=== PATIENT | female | born 1935 | race Caucasian/White ===

== ENCOUNTER 2016-08-18 14:43 | Outpatient (CLI) | payer MEDICARE | END 2016-08-18 14:44 | disposition home or self-care (01) | DX: M85.88 Other specified disorders of bone density and structure, other site (principal); M35.3 Polymyalgia rheumatica; Z79.52 Long term (current) use of systemic steroids ==

== ENCOUNTER 2017-02-20 12:05 | Outpatient (CLI) | payer MEDICARE ==
--- NOTE | 2017-02-20 15:19 | XRAY Report ---
LEFT HIP AND PELVIS: 02/20/2017 CLINICAL INDICATION: Pain. FINDINGS: Frontal view of the hips and pelvis and frogleg lateral view of the left hip demonstrate m oderate osteoarthritis. There is no evidence of acute fracture or dislocation. No radiopaque foreign body is seen in the soft tissues. IMPRESSION: MODERATE LEFT HIP OSTEOARTHRITIS. 15:9:45 JOB #: [id number] EXT JOB #:[id number]
== END 2017-02-20 12:06 | disposition home or self-care (01) ==
LOC: DI.N 12:05
PROVIDERS: ATTEND Internal Medicine
DX: M25.552 Pain in left hip (principal); M16.12 Unilateral primary osteoarthritis, left hip

== ENCOUNTER 2019-11-29 14:20 | Outpatient (CLI) | payer MEDICARE ==
--- NOTE | 2019-11-29 16:51 | Ultrasound Report ---
Reason: VENOUS INSUFFICIENCY Procedure Date: 11/29/2019 Accession Number: [id number] / [id number] Procedure: US - Duplex Lwr Ext Arterial Bilat CPT Code: Final Report FULL RESULT: PROCEDURE: Duplex Lwr Ext Arterial Bilat INDICATIONS: VENOUS INSUFFICIENCY TECHNIQUE: Color and pulse Doppler interrogation was performed of both lower extremity arterial systems, with image documentation. COMPARISON: None FINDINGS: Right lower extremity: Common femoral artery: 71 cm/sec, with triphasic flow. Deep femoral artery: 57 cm/sec, with triphasic flow. Proximal superficial femoral artery: 69 cm/sec, with triphasic flow. Mid superficial femoral artery: 67 cm/sec, with triphasic flow. Distal superficial femoral artery: 62 cm/sec, with biphasic flow. Popliteal artery: 65 cm/sec, with biphasic flow. Posterior tibial artery: 70 cm/sec, with biphasic flow. Anterior tibial artery/dorsalis pedis: 47/52 cm/sec, with biphasic flow. Hurley-scale imaging description: Scattered, moderate calcifications. Left lower extremity: Common femoral artery: 70 cm/sec, with triphasic flow. Deep femoral artery: 49 cm/sec, with triphasic flow. Proximal superficial femoral artery: 79 cm/sec, with biphasic flow. Mid superficial femoral artery: 73 cm/sec, with biphasic flow. Distal superficial femoral artery: 67 cm/sec, with biphasic flow. Popliteal artery: 62 cm/sec, with biphasic flow. Posterior tibial artery: 53 cm/sec, with biphasic flow. Anterior tibial artery/dorsalis pedis: 58/71 cm/sec, with biphasic flow. Hurley-scale imaging description: Scattered, moderate calcifications IMPRESSION: No hemodynamically significant stenosis. Reviewed by: Carolyn Miguel MD on 11/29/2019 4:49 PM PDT Approved by: Carolyn Miguel MD on 11/29/2019 4:49 PM PDT Station ID: [id number]
== END 2019-11-29 14:21 | disposition home or self-care (01) ==
LOC: DI 14:20
PROVIDERS: ATTEND Internal Medicine
DX: I87.2 Venous insufficiency (chronic) (peripheral) (principal); I73.9 Peripheral vascular disease, unspecified
CPT/HCPCS: 93925

== ENCOUNTER 2020-05-03 17:30 | Outpatient (CLI) | payer OTHER, MEDICARE | END 2020-05-03 17:31 | disposition EMS.NT | LOC: EMS 17:30 | PROVIDERS: ATTEND Surgery | DX: Z04.3 Encounter for examination and observation following other accident (principal) ==

== ENCOUNTER 2022-02-20 08:03 | Day surgery (SDC) | payer MEDICARE ==
[~2022-02-20 08:03] MED LIST: BRIMONIDINE 0.2% OPHTH DROPS 5 ML ONE; BSS/LIDOCAINE/EPINEPHRINE 1 ML VIAL ONE; CYCLOPENTOLATE 1% OPHTH DROPS 2 ML ONE; KETOROLAC 0.45% OPHTH DROPS ONE; PHENYLEPHRINE 2.5% OPHTH 2 ML DROPS ONE; PROPARACAINE 0.5% OPHTH DROPS 15 ML ONE; TIMOLOL 0.5% OPHTH DROPS ONE; TRIAMCIN/MOXIFLOX OPHTHALMIC 0.6 ML VIAL IO ONE; VANCOMYCIN OPHTH (TOPICAL) 10 MG/ML SYRINGE ONE
[2022-02-20] MEDS ORDERED: LACTATED RINGERS 1,000 ML IV ONE (08:39)
--- NOTE | 2022-02-20 08:59 | ANESTHESIA ---
Pre-Anesthesia VS, & Labs - Diagnosis R nuclear cataract - Procedure R extraction cataract Vital Signs: Temp Pulse Resp BP Pulse Ox 36.4 C L 56 L 16 133/76 H 97 02/20/22 08:28 02/20/22 08:28 02/20/22 08:28 02/20/22 08:28 02/20/22 08:28 Height: 5 ft 2 in Weight (kg): 45.36 kg Body Mass Index: 18.3 BMI Classification: Underweight - NPO >8 hours - Is Patient ?: No - Lab Results Lab results reviewed: Yes Home Medications and Allergies Home Medications: Ambulatory Orders No Known Home Medications 02/19/22 No Known Home Medications 02/19/22 Allergies/Adverse Reactions: Allergies Allergy/AdvReac Type Severity Reaction Status Date / Time No Known Drug Allergies Allergy Verified 02/19/22 13:21 Anes History & Medical History - Anesthetic History Anesthesia Complications: reports: No previous complications Family history of Anesthesia Complications: Denies Family history of Malignant Hyperthermia: Denies - Medical History Cardiovascular: reports: None Pulmonary: reports: None Gastrointestinal: reports: None Urinary: reports: None Musculoskeletal: reports: Osteoarthritis Endocrine/Autoimmune: reports: None Skin: reports: None - Surgical History General: reports: Colonoscopy Orthopedic: reports: Other Exam General: Alert, Oriented x3, Cooperative Dental: WNL Mouth Openin Fingerbreadth Neck Mobility: Normal Mallampati classification: II Thyromental Distance: 4-6 cm Cardiovascular: Regular rate Neurological: Normal speech Mental/Cognitive Status: Alert/Oriented X3, Normal for patient Cognitive Status: Within normal limits Plan Anesthesia Type: MAC Consent for Procedure(s) Verified and Reviewed: Yes Code Status: Attempt Resuscitation ASA classification: 2-Mild systemic disease Is this case an emergency?: No
[2022-02-20] MEDS ORDERED: MIDAZOLAM 2 MG/2 ML VIAL ONE (09:11)
[2022-02-20] MEDS ORDERED: BRIMONIDINE 0.2% OPHTH DROPS 5 ML OPTH ONE (09:33)
[2022-02-20] MEDS ORDERED: TIMOLOL 0.5% OPHTH DROPS OPTH ONE (09:34)
[2022-02-20] MEDS ORDERED: BSS/LIDOCAINE/EPINEPHRINE 1 ML SYRINGE IO ONE (09:34)
[2022-02-20] MEDS ORDERED: EPINEPHrine 1 MG/ML AMP IR ONE (09:34)
[2022-02-20] MEDS ORDERED: TRIAMCIN/MOXIFLOX OPHTHALMIC 0.6 ML VIAL IO ONE (09:34)
[2022-02-20] MEDS ORDERED: PROPARACAINE 0.5% OPHTH DROPS 15 ML EACHEYE ONE (09:35)
[2022-02-20] MEDS ORDERED: VANCOMYCIN OPHTH (TOPICAL) 10 MG/ML SYRINGE TOP ONE (09:35)
--- NOTE | 2022-02-20 09:49 | OPERATIVE REPORT ---
Operative Report - Other Other Information/Narrative: Date of Surgery: 02/20/22 Preop Dx: Visually significant cataract right eye. This was the first cataract surgery. Postop Dx: Same Procedure: Phacoemulsification with posterior chamber intraocular lens implant right eye Surgeon: Dr. 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 Best corrected visual acuity was 20/50 with glare to hand motion vision in the right eye. Indications for surgery were: - Overall decrease in vision - Difficulty driving in low light or at night - Difficulty driving at night because of headlights from other vehicles - Difficulty with glare or bright lights in any situation The patient was consented at length concerning the risks and benefits of cataract surgery after which the patient expressed a desire to proceed with surgery. Operative Procedure: The patient was taken into OR#3 and placed under monitored anesthesia care. A surgical time-out was conducted confirming correct patient, correct procedure, and correct surgical site. The patient was given topical anesthesia and then prepped and draped in the usual sterile fashion. The eye was entered at the 6 and 3 oclock positions. Intracameral Shugarcaine was injected into the anterior chamber followed by a dispersive viscoelastic. A continuous-tear curvilinear capsulorhexis was performed. The nucleus was hydrodissected and phacoemulsified. The cortex was evacuated using automated infusion and aspiration. A cohesive viscoelastic was injected into the capsular bag and a 22.0 diopter intraocular lens was inserted into the bag. Infusion and aspiration were used to evacuate the viscoelastic materials from the eye. The wounds were hydrated and the eye inflated to physiologic pressure using balanced salt solution. Approximately 0.25ml of a mixture of triamcinolone and moxif loxacin was injected trans-sclerally into the vitreous in the inferotemporal quadrant using a 30 gauge cannula. An additional 0.55ml of a mixture of triamcinolone and moxifloxacin was injected subconjunctivally in the superior quadrant for infection and inflammation prophylaxis. Wound integrity was checked with Weck-Lorena sponges. The patient was taken from the operating room in good condition and given post-op instructions.
[2022-02-20] MEDS ORDERED: LIDOCAINE-MPF 2% 5 ML VIAL ONE (09:54)
[2022-02-20] MEDS ORDERED: LACTATED RINGERS 900 ML IV ONE ×3 (09:55)
[2022-02-20 10:39] VITALS: BP 150/62
--- NOTE | 2022-02-20 13:24 | ANESTHESIA POST OP EVALUATION ---
Anesthesia Post Eval - Post Anesthesia Eval Vitals: Last Vital Signs Temp 36.2 C L 02/20/22 10:30 Pulse 65 02/20/22 10:30 Resp 16 02/20/22 10:30 BP 150/62 H 02/20/22 10:30 Pulse Ox 99 02/20/22 10:30 CV Function Including HR & BP: Stable Pain Control: Satisfactory Nausea & Vomiting: Negative Mental Status: Baseline Respiratory Status: Airway Patent Hydration Status: Satisfactory Anesthesia Complications: None
== END 2022-02-20 08:04 | disposition home or self-care (01) ==
LOC: SDS 08:03
PROVIDERS: ATTEND Ophthalmology
DX: H25.11 Age-related nuclear cataract, right eye (principal); R63.6 Underweight; Z68.1 Body mass index [BMI] 19.9 or less, adult
CPT/HCPCS: 66984; A9270; J3490; J7120; V2632